=== PATIENT | female | born 1955 | race Caucasian/White ===

== ENCOUNTER 2018-08-23 14:44 | Emergency (ER) | payer OTHER ==
[2018-08-23] MEDS ORDERED: KETOROLAC TROMETHAMINE 30 MG/ML SOL IV ONE (15:24)
[2018-08-23] MEDS ORDERED: FENTANYL 100MCG/2ML SOL IV ONE (15:24)
[2018-08-23 15:25] VITALS: TEMP 97.6
[2018-08-23] MEDS ORDERED: SODIUM CHLORIDE 0.9% 1000ML 1,000 ML IV ONE ×2 (15:25→15:47)
[2018-08-23] MEDS ORDERED: PIPERACILLIN/TAZOBACT 3.375 GM 3.375 GM in SODIUM CHLORIDE 0.9% 100 ML 100 ML IV ONE (15:27)
[2018-08-23] MEDS ORDERED: PIPERACILLIN/TAZOBACT 3.375 GM PDS IV ONE (15:31)
[2018-08-23] MEDS ORDERED: FENTANYL 100MCG/2ML SOL ONE (15:35)
[2018-08-23] MEDS ORDERED: KETOROLAC TROMETHAMINE 30 MG/ML SOL ONE (15:36)
[2018-08-23] MEDS ORDERED: ALBUTEROL NEB SOL 2.5MG/3ML 1 VIAL SOL NEB ONE (15:45)
[2018-08-23 15:53] LABS: BASOPHILS % (AUTO) 1 % (0-3); EOSINOPHILS % (AUTO) 2 % (0-9); HEMATOCRIT 36 % (35-47); HEMOGLOBIN 11.2 gm/dl (12.0-15.5); LYMPHOCYTES % (AUTO) 32.8 % (10-50); MEAN CORPUSCULAR HEMOGLOBIN 26.9 pg (27.0-32.0); MEAN CORPUSCULAR HGB CONC 31.4 gm/dl (32.0-36.0); MEAN CORPUSCULAR VOLUME 86 fL (81-99); MONOCYTES % (AUTO) 10.5 % (0-12); NEUTROPHILS % (AUTO) 54.2 % (37-80)
[2018-08-23 16:03] LABS: ALBUMIN 3.6 gm/dl (3.4-5.0); BILIRUBIN,TOTAL 0.3 mg/dl (0.2-1.0); CALCIUM 8.8 mg/dl (8.5-10.1); CRP INFLAMMATORY 0.1 mg/dl (0.00-0.33); POTASSIUM 4.4 mMol/L (3.5-5.1); TOTAL PROTEIN 6.9 gm/dl (6.4-8.2)
[2018-08-23] MEDS ORDERED: ALBUTEROL NEB SOL 2.5MG/3ML 1 VIAL SOL ONE (16:08)
[2018-08-23 16:16] LABS: CARBON DIOXIDE 38.6 mEq/L (21-32)
[2018-08-23 16:17] LABS: CREATININE 0.96 mg/dl (0.60-1.00)
[2018-08-23] MEDS ORDERED: HYDROMORPHONE 1 MG/ML SYRINGE IV ONE (17:41)
[2018-08-23] MEDS ORDERED: HYDROMORPHONE 1 MG/ML SYRINGE ONE (17:43)
[2018-08-23 18:50] VITALS: BP 134/78; PULSE 68; RESP 16; O2SAT 99
== END 2018-08-23 18:45 | disposition home or self-care (01) | DRG 392 ==
LOC: ED 14:44
DX: K52.89 Other specified noninfective gastroenteritis and colitis (principal); R06.02 Shortness of breath; R06.2 Wheezing
CPT/HCPCS: 74177; 80053; 83880; 85025; 85651; 96365; 96366; 96374; 96375; 99283; 99285; J1885; J2543; J3010; J7613; Q9967; J1170